=== PATIENT | female | born 1945 | race Caucasian/White ===

== ENCOUNTER 2016-09-20 01:39 | Emergency (ER) | payer OTHER ==
[~2016-09-20] VITALS: Ht 167.6 cm; Wt 78.0 kg
[~2016-09-20 01:39] MED LIST: LEVAQUIN750 MG PO; LISINOPRIL/HCTZ1 TAB PO; LISINOPRIL10 MG PO; METOPROLOL25 MG PO; VICODIN 5/500 505 MG PO; Vicodin 5/500 505 MG PO
[2016-09-20 02:05] LABS: BILIRUBIN NEGATIVE (NEGATIVE); BLOOD 1+ (NEGATIVE); CLARITY SL CLOUDY (CLEAR); COLOR YELLOW (YELLOW); GLUCOSE NEGATIVE (NEGATIVE); KETONE NEGATIVE (NEGATIVE); LEUKO ESTERASE 1+ (NEGATIVE); NITRITE POSITIVE (NEGATIVE); PH 6.5 (5.0-9.0); PROTEIN NEGATIVE (NEGATIVE); UROBILINOGEN 0.2 E.U./dl (0.2-1.0)
[2016-09-20 02:33] LABS: BASO % 0.3 % (0.0-1.0); EOS # 0.1 10*3/uL (0.0-0.4); EOS % 0.9 % (1.0-4.0); HEMATOCRIT 37.6 % (37.0-47.0); HEMOGLOBIN 11.9 g/dl (12.0-16.0); IG # 0.1 10*3/uL (0.0-0.1); LYMPH # 1.1 10*3/uL (1.3-4.4); LYMPH % 7.1 % (27.0-41.0); MEAN CELL VOLUME 90.6 fl (81.0-99.0); MEAN CORPUSCULAR HGB 28.7 pg (27.0-31.0); MEAN CORPUSCULAR HGB CONC 31.6 g/dl (33.0-37.0); MEAN PLATELET VOLUME 10.1 fl (9.6-12.3); MONO # 1.5 10*3/uL (0.1-1.0); MONO % 9.4 % (3.0-9.0); NEUT # 12.8 10*3/uL (2.3-7.9); PLATELET COUNT AUTOMATED 173 10*3/uL (130-400); RED BLOOD COUNT 4.15 10*6/uL (4.10-5.10); RED CELL DISTRI WIDTH 13.6 % (0-14.5); WHITE BLOOD COUNT 15.5 10*3/uL (4.8-10.8)
[2016-09-20 02:42] LABS: BACTERIA 2+; RBC 16-20 rbc/hpf (0-2); URINE REFLEX COMMENT YES (NO); WBC 16-20 wbc/hpf (0-5)
[2016-09-20 02:47] LABS: POTASSIUM 4.2 mmol/L (3.5-5.1)
[2016-09-20] MEDS ORDERED: ZOFRAN ODT4 MG SL (04:56)
[2016-09-20] MEDS ORDERED: NORCO 5-325 TA1 EACH PO (04:56)
[2016-09-20] MEDS ORDERED: CIPRO500 MG PO ×2 (04:56→05:03)
[2016-09-21] MEDS ORDERED: LISINOPRIL5 MG PO (23:14)
[2016-09-21] MEDS ORDERED: LEVOTHYROXIN0.075 MG PO (23:16)
== END 2016-09-20 05:25 | disposition home or self-care (01) ==
LOC: ED 01:39
PROVIDERS: Emergency Medicine Emergency Medical Services
DX: A00-B99 Certain infectious and parasitic diseases (principal); N20.0 Calculus of kidney; Z87.442 Personal history of urinary calculi; Z88.0 Allergy status to penicillin; Z90.49 Acquired absence of other specified parts of digestive tract

== ENCOUNTER 2016-09-21 19:05 | Inpatient (IN) | payer OTHER ==
[~2016-09-21] VITALS: Ht 167.6 cm; Wt 80.4 kg
[~2016-09-21 19:05] MED LIST changes: +CIPRO500 MG PO; +NORCO 5-325 TA1 EACH PO; +ZOFRAN ODT4 MG SL
[2016-09-21 19:24] VITALS: BP 152/64
[2016-09-21 19:57] LABS: MEAN CELL VOLUME 91.4 fl (81.0-99.0); MEAN CORPUSCULAR HGB 28.7 pg (27.0-31.0); MEAN CORPUSCULAR HGB CONC 31.4 g/dl (33.0-37.0); MEAN PLATELET VOLUME 10.2 fl (9.6-12.3); PLATELET COUNT AUTOMATED 157 10*3/uL (130-400); RED BLOOD COUNT 3.83 10*6/uL (4.10-5.10); RED CELL DISTRI WIDTH 13.6 % (0-14.5); WHITE BLOOD COUNT 14.2 10*3/uL (4.8-10.8)
[2016-09-21 20:14] LABS: ALBUMIN 3.1 gm/dl (3.1-4.5); ALKALINE PHOSPHATASE 98 U/L (45-117); BILIRUBIN, TOTAL 1.5 mg/dl (0.2-1.0); BUN 21 mg/dl (7-24); CARBON DIOXIDE 26 mmol/L (21-32); CHLORIDE 102 mmol/L (98-107); EST GLOM FILT AFRICAN AMERICAN > 60 ml/min; GLUCOSE 118 mg/dL (65-99); POTASSIUM 3.8 mmol/L (3.5-5.1); SGOT/AST 22 IU/L (3-35); SGPT/ALT 33 U/L (12-78); SODIUM 136 mmol/L (136-145); TOTAL PROTEIN 7.3 gm/dL (6.4-8.2)
[2016-09-21 20:17] LABS: MONOCYTE # 1.4 10*3/uL (0.1-1.0); NEUTROPHIL # 11.8 10*3/uL (2.3-7.9); NEUTROPHILS 83 % (47-73); PLATELET SUFFICIENCY NORMAL (NORMAL); TOTAL CELLS COUNTED 100 #CELLS; TROPONIN I < 0.015 ng/ml (<0.045)
[2016-09-21 20:49] VITALS: BP 135/52
[2016-09-21 22:00] VITALS: BP 139/58
[2016-09-21] MEDS ORDERED: LISINOPRIL5 MG PO (23:14)
[2016-09-21] MEDS ORDERED: LEVOTHYROXIN0.075 MG PO (23:16)
[2016-09-22] VITALS: BP 146/59
[2016-09-22 06:57] LABS: BASO % 0.1 % (0.0-1.0); EOS % 0.4 % (1.0-4.0); HEMOGLOBIN 9.8 g/dl (12.0-16.0); IG # 0.1 10*3/uL (0.0-0.1); LYMPH # 0.9 10*3/uL (1.3-4.4); LYMPH % 10.1 % (27.0-41.0); MEAN CELL VOLUME 92.3 fl (81.0-99.0); MEAN CORPUSCULAR HGB 29.2 pg (27.0-31.0); MEAN CORPUSCULAR HGB CONC 31.6 g/dl (33.0-37.0); MEAN PLATELET VOLUME 10.2 fl (9.6-12.3); MONO # 0.9 10*3/uL (0.1-1.0); MONO % 9.5 % (3.0-9.0); NEUT # 7.2 10*3/uL (2.3-7.9); NEUT % 79.3 % (47.0-73.0); PLATELET COUNT AUTOMATED 141 10*3/uL (130-400); RED BLOOD COUNT 3.36 10*6/uL (4.10-5.10); RED CELL DISTRI WIDTH 13.5 % (0-14.5)
[2016-09-22 07:31] LABS: ALBUMIN 2.5 gm/dl (3.1-4.5); BUN 18 mg/dl (7-24); CARBON DIOXIDE 24 mmol/L (21-32); CHLORIDE 110 mmol/L (98-107); CHOLESTEROL 158 mg/dL (<200); EST GLOM FILT AFRICAN AMERICAN > 60 ml/min; GLUCOSE 90 mg/dL (65-99); MAGNESIUM 1.9 mg/dL (1.5-2.1); PHOSPHOROUS 2.4 mg/dL (2.5-4.9); SGOT/AST 16 IU/L (3-35); SGPT/ALT 25 U/L (12-78); SODIUM 142 mmol/L (136-145); TOTAL PROTEIN 6.1 gm/dL (6.4-8.2); TRIGLYCERIDES 72 mg/dl (<150); VLDL CHOLESTEROL 14 mg/dL (6-40)
[2016-09-22 07:37] LABS: ALKALINE PHOSPHATASE 80 U/L (45-117); HDL CHOLESTEROL 46 mg/dl (40-60); LDL CHOLESTEROL 98 mg/dL (9-159); THYROID STIM HORMONE (HS) 0.947 uIU/ml (0.358-4.75)
[2016-09-22 07:38] LABS: PROTHROMBIN TIME 10.9 SECONDS (9.0-12.4)
[2016-09-22 07:40] LABS: HEMOGLOBIN A1c 6.5 % (4.8-5.6)
[2016-09-22 08:00] VITALS: BP 110/42
[2016-09-22 08:06] LABS: VITAMIN D, 25-HYDROXY 20.5 ng/mL (30-100)
[2016-09-22 08:07] LABS: FOLIC ACID 12.17 ng/mL (>5.38)
[2016-09-22 12:00] VITALS: BP 112/50
== END 2016-09-22 17:46 | disposition home or self-care (01) | DRG 871 ==
LOC: ED 19:05 → EDHOLD 20:24 → 4E 20:24
PROVIDERS: Internal Medicine; Nurse Practitioner Family
DX: A41.9 Sepsis, unspecified organism (principal); E43 Unspecified severe protein-calorie malnutrition; N10 Acute pyelonephritis; D64.9 Anemia, unspecified; I10 Essential (primary) hypertension; E78.5 Hyperlipidemia, unspecified; E03.9 Hypothyroidism, unspecified; Z90.49 Acquired absence of other specified parts of digestive tract; Z82.49 Family history of ischemic heart disease and other diseases of the circulatory system; Z88.0 Allergy status to penicillin; N20.0 Calculus of kidney; R73.9 Hyperglycemia, unspecified

== ENCOUNTER → 2018-07-22 | Outpatient (CLI) | payer OTHER ==
[~2018-07-22] MED LIST changes: +COZAAR25 M1 PO; +LEVAQUIN750 M1 PO; +LEVOTHYROXIN0.075 MG PO; +LISINOPRIL5 MG PO; +VITAMIN D-32000 UNIT PO; +ZOVIRAX800 MG PO
== END | disposition home or self-care (01) ==
LOC: ORTHO 00:16
DX: S52.591D Other fractures of lower end of right radius, subsequent encounter for closed fracture with routine healing (principal); X58.XXXD Exposure to other specified factors, subsequent encounter

== ENCOUNTER → 2018-09-01 | Outpatient (CLI) | payer OTHER | END | disposition home or self-care (01) | LOC: ORTHO 00:37 | DX: S52.551D Other extraarticular fracture of lower end of right radius, subsequent encounter for closed fracture with routine healing (principal); X58.XXXD Exposure to other specified factors, subsequent encounter ==

== ENCOUNTER 2019-10-30 21:31 | Emergency (ER) | payer OTHER ==
[~2019-10-30] VITALS: Ht 165.1 cm; Wt 81.6 kg
[2019-10-30 22:21] LABS: BASO # 0.1 10*3/uL (0.0-0.1); BASO % 0.9 % (0.0-1.0); EOS # 0.2 10*3/uL (0.0-0.4); EOS % 3.2 % (1.0-4.0); HEMATOCRIT 36.5 % (37.0-47.0); LYMPH # 1.7 10*3/uL (1.3-4.4); LYMPH % 25.8 % (27.0-41.0); MEAN CELL VOLUME 97.3 fl (81.0-99.0); MEAN CORPUSCULAR HGB 30.1 pg (27.0-31.0); MEAN PLATELET VOLUME 10.4 fl (9.6-12.3); MONO # 0.6 10*3/uL (0.1-1.0); MONO % 9.5 % (3.0-9.0); NEUT % 60.3 % (47.0-73.0); PLATELET COUNT AUTOMATED 174 10*3/uL (130-400); RED BLOOD COUNT 3.75 10*6/uL (4.10-5.10); RED CELL DISTRI WIDTH 12.8 % (0-14.5); WHITE BLOOD COUNT 6.6 10*3/uL (4.8-10.8)
[2019-10-30 22:41] LABS: ALBUMIN 3.5 gm/dl (3.1-4.5); ALKALINE PHOSPHATASE 110 U/L (45-117); BUN 21 mg/dl (7-24); CHLORIDE 111 mmol/L (98-107); CREATININE 1.02 mg/dL (0.55-1.02); POTASSIUM 3.6 mmol/L (3.5-5.1); SGOT/AST 29 IU/L (3-35); SGPT/ALT 33 U/L (12-78); SODIUM 141 mmol/L (136-145); TOTAL PROTEIN 7.3 gm/dL (6.4-8.2)
[2019-10-30 23:09] LABS: BILIRUBIN NEGATIVE; BLOOD 1+ (NEGATIVE); CLARITY CLEAR (CLEAR); COLOR YELLOW (YELLOW); GLUCOSE NEGATIVE; KETONE NEGATIVE; LEUKO ESTERASE 2+ (NEGATIVE); NITRITE NEGATIVE (NEGATIVE); UROBILINOGEN 0.2 E.U./dl (0.2-1.0)
[2019-10-30 23:17] LABS: BACTERIA 1+; RBC 21-30 rbc/hpf (0-2); WBC TNTC wbc/hpf (0-5)
[2019-10-31] MEDS ORDERED: MACROBID100 M1 PO (00:23)
== END 2019-10-31 00:30 | disposition home or self-care (01) ==
LOC: ED 21:31
PROVIDERS: Emergency Medicine Emergency Medical Services
DX: I77.6 Arteritis, unspecified (principal); I10 Essential (primary) hypertension; R79.1 Abnormal coagulation profile; E03.9 Hypothyroidism, unspecified; Z88.0 Allergy status to penicillin; Z79.899 Other long term (current) drug therapy

== ENCOUNTER 2020-03-25 12:57 | Emergency (ER) | payer OTHER ==
[~2020-03-25] VITALS: Ht 167.6 cm; Wt 81.6 kg
[~2020-03-25 12:57] MED LIST changes: +MACROBID100 M1 PO
[2020-03-25 14:02] LABS: BASO # 0.1 10*3/uL (0.0-0.1); EOS # 0.2 10*3/uL (0.0-0.4); EOS % 2.6 % (1.0-4.0); HEMATOCRIT 39.1 % (37.0-47.0); LYMPH # 1.7 10*3/uL (1.3-4.4); LYMPH % 23.1 % (27.0-41.0); MEAN CELL VOLUME 94.9 fl (81.0-99.0); MEAN CORPUSCULAR HGB 30.1 pg (27.0-31.0); MEAN CORPUSCULAR HGB CONC 31.7 g/dl (33.0-37.0); MEAN PLATELET VOLUME 10.2 fl (9.6-12.3); MONO # 0.7 10*3/uL (0.1-1.0); MONO % 10.2 % (3.0-9.0); NEUT # 4.6 10*3/uL (2.3-7.9); NEUT % 62.8 % (47.0-73.0); PLATELET COUNT AUTOMATED 188 10*3/uL (130-400); RED BLOOD COUNT 4.12 10*6/uL (4.10-5.10); RED CELL DISTRI WIDTH 13.2 % (0-14.5); WHITE BLOOD COUNT 7.3 10*3/uL (4.8-10.8)
[2020-03-25 14:12] LABS: ACT PARTIAL THROMBO TIME 27.1 SECONDS (20.0-32.1)
[2020-03-25 14:34] LABS: BILIRUBIN Negative (Negative); BLOOD Negative (Negative); CLARITY Clear (Clear); COLOR Yellow (Yellow); GLUCOSE Negative (Negative); KETONE Negative (Negative); LEUKO ESTERASE Negative (Negative); NITRITE Negative (Negative); PH 6.5 (4.5-8.0); UROBILINOGEN 0.2 E.U./dl (0.0-1.0)
[2020-03-25 14:36] LABS: ALBUMIN 3.8 gm/dl (3.1-4.5); ALKALINE PHOSPHATASE 117 U/L (45-117); BUN 20 mg/dl (7-24); CHLORIDE 107 mmol/L (98-107); CREATININE 0.81 mg/dL (0.55-1.02); SGOT/AST 27 IU/L (3-35); SGPT/ALT 29 U/L (12-78); SODIUM 139 mmol/L (136-145); TOTAL PROTEIN 7.6 gm/dL (6.4-8.2)
[2020-03-25 14:49] LABS: MUCOUS 1+
[2020-03-25 14:53] LABS: TROPONIN I < 0.015 ng/ml (<0.045)
[2020-03-25] MEDS ORDERED: LOPRESSOR50 M1 PO (16:12)
== END 2020-03-25 16:17 | disposition home or self-care (01) ==
LOC: ED 12:57
PROVIDERS: Internal Medicine
DX: I47.1 Supraventricular tachycardia (principal); Z88.0 Allergy status to penicillin; Z79.899 Other long term (current) drug therapy

== ENCOUNTER 2020-05-13 14:43 | Emergency (ER) | payer OTHER ==
[~2020-05-13] VITALS: Wt 84.4 kg
[~2020-05-13 14:43] MED LIST changes: +LOPRESSOR50 M1 PO
[2020-05-13 15:10] LABS: BASO # 0.1 10*3/uL (0.0-0.1); BASO % 0.8 % (0.0-1.0); EOS # 0.2 10*3/uL (0.0-0.4); HEMATOCRIT 38.6 % (37.0-47.0); LYMPH # 1.3 10*3/uL (1.3-4.4); LYMPH % 17.6 % (27.0-41.0); MEAN CORPUSCULAR HGB 29.9 pg (27.0-31.0); MEAN CORPUSCULAR HGB CONC 30.8 g/dl (33.0-37.0); MEAN PLATELET VOLUME 10.2 fl (9.6-12.3); MONO # 0.6 10*3/uL (0.1-1.0); MONO % 8.5 % (3.0-9.0); NEUT # 5.1 10*3/uL (2.3-7.9); NEUT % 69.8 % (47.0-73.0); PLATELET COUNT AUTOMATED 198 10*3/uL (130-400); RED BLOOD COUNT 3.98 10*6/uL (4.10-5.10); RED CELL DISTRI WIDTH 13.2 % (0-14.5); WHITE BLOOD COUNT 7.3 10*3/uL (4.8-10.8)
[2020-05-13 15:21] LABS: ACT PARTIAL THROMBO TIME 27.6 SECONDS (20.0-32.1)
[2020-05-13 15:28] LABS: ALBUMIN 3.5 gm/dl (3.1-4.5); ALKALINE PHOSPHATASE 112 U/L (45-117); BUN 18 mg/dl (7-24); CHLORIDE 109 mmol/L (98-107); CREATININE 0.86 mg/dL (0.55-1.02); POTASSIUM 3.6 mmol/L (3.5-5.1); SGOT/AST 26 IU/L (3-35); SGPT/ALT 27 U/L (12-78); SODIUM 141 mmol/L (136-145); TOTAL PROTEIN 7.8 gm/dL (6.4-8.2)
[2020-05-13 15:29] LABS: TROPONIN I 0.015 ng/ml (<0.045)
[2020-05-13 15:37] LABS: THYROID STIM HORMONE (HS) 2.22 uIU/ml (0.358-4.75)
== END 2020-05-13 20:00 | disposition short-term general hospital (02) ==
LOC: ED 14:43
PROVIDERS: Emergency Medicine
DX: I21.4 Non-ST elevation (NSTEMI) myocardial infarction (principal); R00.2 Palpitations; Z88.0 Allergy status to penicillin; Z79.899 Other long term (current) drug therapy; Z79.2 Long term (current) use of antibiotics; E78.5 Hyperlipidemia, unspecified; I10 Essential (primary) hypertension; E03.9 Hypothyroidism, unspecified; Z87.442 Personal history of urinary calculi; Z90.711 Acquired absence of uterus with remaining cervical stump; Z90.49 Acquired absence of other specified parts of digestive tract

== ENCOUNTER 2020-12-11 10:21 | Emergency (ER) | payer OTHER ==
[~2020-12-11] VITALS: Ht 165.1 cm; Wt 81.6 kg
[2020-12-11 10:56] LABS: BASO % 0.3 % (0.0-1.0); EOS % 0.6 % (1.0-4.0); HEMATOCRIT 36.7 % (37.0-47.0); LYMPH # 0.7 10*3/uL (1.3-4.4); LYMPH % 23.5 % (27.0-41.0); MEAN CELL VOLUME 95.6 fl (81.0-99.0); MEAN CORPUSCULAR HGB 30.5 pg (27.0-31.0); MEAN CORPUSCULAR HGB CONC 31.9 g/dl (33.0-37.0); MEAN PLATELET VOLUME 10.3 fl (9.6-12.3); MONO # 0.5 10*3/uL (0.1-1.0); MONO % 14.6 % (3.0-9.0); NEUT # 1.9 10*3/uL (2.3-7.9); NEUT % 60.7 % (47.0-73.0); PLATELET COUNT AUTOMATED 135 10*3/uL (130-400); RED BLOOD COUNT 3.84 10*6/uL (4.10-5.10); RED CELL DISTRI WIDTH 12.5 % (0-14.5); WHITE BLOOD COUNT 3.2 10*3/uL (4.8-10.8)
[2020-12-11 11:12] LABS: CREATININE 1.24 mg/dL (0.55-1.02); POTASSIUM 4.2 mmol/L (3.5-5.1); TOTAL PROTEIN 7.1 gm/dL (6.4-8.2)
[2020-12-11 11:56] LABS: BILIRUBIN Negative (Negative); BLOOD Negative (Negative); CLARITY Cloudy (Clear); COLOR Yellow (Yellow); GLUCOSE Negative (Negative); KETONE Trace (Negative); LEUKO ESTERASE Negative (Negative); NITRITE Negative (Negative)
[2020-12-11 12:07] LABS: BACTERIA 2+; HYALINE CAST 0-2
[2020-12-11 12:09] LABS: RBC 0-2 rbc/hpf (0-2)
== END 2020-12-11 15:21 | disposition home or self-care (01) ==
LOC: ED 10:21
PROVIDERS: Internal Medicine
DX: U07.1 COVID-19 (principal); Z88.0 Allergy status to penicillin; Z88.2 Allergy status to sulfonamides; Z79.899 Other long term (current) drug therapy; Z79.2 Long term (current) use of antibiotics; Z90.49 Acquired absence of other specified parts of digestive tract; Z98.890 Other specified postprocedural states; Z90.711 Acquired absence of uterus with remaining cervical stump

== ENCOUNTER → 2021-09-08 | Outpatient (CLI) | payer OTHER | END | disposition home or self-care (01) | LOC: COVID19 03:22 | PROVIDERS: ATTEND Internal Medicine | DX: Z20.822 Contact with and (suspected) exposure to COVID-19 (principal) ==

== ENCOUNTER 2022-01-18 10:46 | Emergency (ER) | payer OTHER ==
[~2022-01-18] VITALS: Ht 165.1 cm; Wt 86.2 kg
[2022-01-18] MEDS ORDERED: HYDR25T PO (11:39)
[2022-01-18] MEDS ORDERED: COZAAR100 MG PO (11:39)
[2022-01-18 12:01] LABS: BASO # 0.1 10*3/uL (0.0-0.1); BASO % 0.8 % (0.0-1.0); EOS # 0.2 10*3/uL (0.0-0.4); EOS % 2.3 % (1.0-4.0); HEMATOCRIT 37.6 % (37.0-47.0); LYMPH # 1.6 10*3/uL (1.3-4.4); LYMPH % 19.1 % (27.0-41.0); MEAN CELL VOLUME 98.9 fl (81.0-99.0); MEAN CORPUSCULAR HGB 31.6 pg (27.0-31.0); MEAN CORPUSCULAR HGB CONC 31.9 g/dl (33.0-37.0); MEAN PLATELET VOLUME 10.2 fl (9.6-12.3); MONO # 1.1 10*3/uL (0.1-1.0); MONO % 13.3 % (3.0-9.0); NEUT # 5.5 10*3/uL (2.3-7.9); NEUT % 64.3 % (47.0-73.0); PLATELET COUNT AUTOMATED 187 10*3/uL (130-400); WHITE BLOOD COUNT 8.5 10*3/uL (4.8-10.8)
[2022-01-18 12:17] LABS: ALKALINE PHOSPHATASE 99 U/L (45-117); BUN 26 mg/dl (7-24); CHLORIDE 108 mmol/L (98-107); CREATININE 1.07 mg/dL (0.55-1.02); POTASSIUM 4.1 mmol/L (3.5-5.1); SGOT/AST 28 IU/L (3-35); SGPT/ALT 20 U/L (12-78); SODIUM 139 mmol/L (136-145); TOTAL PROTEIN 7.5 gm/dL (6.4-8.2)
[2022-01-18] MEDS ORDERED: ROBITUSSIN COU1 EACH PO (12:41)
== END 2022-01-18 13:17 | disposition home or self-care (01) ==
LOC: ED 10:46
PROVIDERS: Physician Assistant
DX: J06.9 Acute upper respiratory infection, unspecified (principal); Z20.822 Contact with and (suspected) exposure to COVID-19; Z79.899 Other long term (current) drug therapy; Z88.0 Allergy status to penicillin; Z88.1 Allergy status to other antibiotic agents

== ENCOUNTER 2022-04-30 11:06 | Emergency (ER) | payer OTHER ==
[~2022-04-30] VITALS: Ht 167.6 cm; Wt 86.2 kg
[~2022-04-30 11:06] MED LIST changes: +COZAAR100 MG PO; +HYDR25T PO; +ROBITUSSIN COU1 EACH PO
== END 2022-04-30 14:34 | disposition home or self-care (01) ==
LOC: ED 11:06
DX: S90.02XA Contusion of left ankle, initial encounter (principal); I10 Essential (primary) hypertension; Z88.0 Allergy status to penicillin; Z88.2 Allergy status to sulfonamides; Z88.8 Allergy status to other drugs, medicaments and biological substances; Z90.49 Acquired absence of other specified parts of digestive tract; Z98.890 Other specified postprocedural states; Z90.710 Acquired absence of both cervix and uterus; Z87.442 Personal history of urinary calculi; W11.XXXA Fall on and from ladder, initial encounter; Y93.89 Activity, other specified; Y92.89 Other specified places as the place of occurrence of the external cause; Y99.8 Other external cause status

== ENCOUNTER 2022-05-02 11:00 | Emergency (ER) | payer OTHER ==
[~2022-05-02] VITALS: Ht 167.6 cm; Wt 86.2 kg
[2022-05-02 11:50] LABS: BASO # 0.1 10*3/uL (0.0-0.1); BASO % 0.9 % (0.0-1.0); EOS # 0.1 10*3/uL (0.0-0.4); EOS % 2.1 % (1.0-4.0); HEMATOCRIT 37.6 % (37.0-47.0); LYMPH # 1.5 10*3/uL (1.3-4.4); LYMPH % 22.1 % (27.0-41.0); MEAN CELL VOLUME 96.9 fl (81.0-99.0); MEAN CORPUSCULAR HGB 30.7 pg (27.0-31.0); MEAN CORPUSCULAR HGB CONC 31.6 g/dl (33.0-37.0); MEAN PLATELET VOLUME 9.9 fl (9.6-12.3); MONO # 0.8 10*3/uL (0.1-1.0); MONO % 11.3 % (3.0-9.0); NEUT # 4.3 10*3/uL (2.3-7.9); NEUT % 63.3 % (47.0-73.0); PLATELET COUNT AUTOMATED 191 10*3/uL (130-400); RED BLOOD COUNT 3.88 10*6/uL (4.10-5.10); RED CELL DISTRI WIDTH 13.5 % (0-14.5); WHITE BLOOD COUNT 6.7 10*3/uL (4.8-10.8)
[2022-05-02 12:01] LABS: ACT PARTIAL THROMBO TIME 33.4 SECONDS (20.0-32.1); INTERNATIONAL NORM RATIO 1.2 (2.0-3.5)
[2022-05-02 12:04] LABS: ALKALINE PHOSPHATASE 86 U/L (46-116); BUN 20 mg/dl (9-23); CHLORIDE 103 mmol/L (98-107); POTASSIUM 3.2 mmol/L (3.4-5.1); SGPT/ALT 14 U/L (10-49); TOTAL PROTEIN 6.6 gm/dL (6.0-8.0)
== END 2022-05-02 13:22 | disposition home or self-care (01) ==
LOC: ED 11:00
PROVIDERS: Emergency Medicine
DX: S90.02XA Contusion of left ankle, initial encounter (principal); S90.822A Blister (nonthermal), left foot, initial encounter; I10 Essential (primary) hypertension; Z87.442 Personal history of urinary calculi; Z88.0 Allergy status to penicillin; Z88.2 Allergy status to sulfonamides; Z88.8 Allergy status to other drugs, medicaments and biological substances; Z90.49 Acquired absence of other specified parts of digestive tract; Z90.710 Acquired absence of both cervix and uterus; Z98.890 Other specified postprocedural states; X58.XXXA Exposure to other specified factors, initial encounter; Y93.89 Activity, other specified; Y92.89 Other specified places as the place of occurrence of the external cause; Y99.8 Other external cause status

== ENCOUNTER → 2022-05-11 | Outpatient (CLI) | payer OTHER | END | disposition home or self-care (01) | LOC: WOUNDCARE 01:22 | PROVIDERS: ATTEND Nurse Practitioner Family | DX: S91.302A Unspecified open wound, left foot, initial encounter (principal); E03.9 Hypothyroidism, unspecified; I10 Essential (primary) hypertension; I48.91 Unspecified atrial fibrillation; I48.20 Chronic atrial fibrillation, unspecified; Z90.49 Acquired absence of other specified parts of digestive tract; Z90.710 Acquired absence of both cervix and uterus; W19.XXXA Unspecified fall, initial encounter; Y93.89 Activity, other specified; Y92.098 Other place in other non-institutional residence as the place of occurrence of the external cause; Y99.8 Other external cause status ==

== ENCOUNTER → 2022-05-18 | Outpatient (CLI) | payer OTHER | END | disposition home or self-care (01) | LOC: WOUNDCARE 00:59 | PROVIDERS: ATTEND Nurse Practitioner Family | DX: S91.302D Unspecified open wound, left foot, subsequent encounter (principal); I10 Essential (primary) hypertension; I48.20 Chronic atrial fibrillation, unspecified; E03.9 Hypothyroidism, unspecified; Z90.710 Acquired absence of both cervix and uterus; Z90.49 Acquired absence of other specified parts of digestive tract; X58.XXXD Exposure to other specified factors, subsequent encounter ==

== ENCOUNTER 2022-11-06 13:15 | Emergency (ER) | payer OTHER ==
[~2022-11-06] VITALS: Ht 165.1 cm; Wt 86.2 kg
[2022-11-06 14:15] LABS: BASO % 0.6 % (0.0-1.0); EOS # 0.1 10*3/uL (0.0-0.4); EOS % 0.8 % (1.0-4.0); HEMATOCRIT 36.4 % (37.0-47.0); LYMPH # 0.8 10*3/uL (1.3-4.4); LYMPH % 12.1 % (27.0-41.0); MEAN CELL VOLUME 100.3 fl (81.0-99.0); MEAN CORPUSCULAR HGB 31.4 pg (27.0-31.0); MEAN CORPUSCULAR HGB CONC 31.3 g/dl (33.0-37.0); MEAN PLATELET VOLUME 10.4 fl (9.6-12.3); MONO # 0.7 10*3/uL (0.1-1.0); PLATELET COUNT AUTOMATED 152 10*3/uL (130-400); RED BLOOD COUNT 3.63 10*6/uL (4.10-5.10); RED CELL DISTRI WIDTH 14.3 % (0-14.5); WHITE BLOOD COUNT 6.6 10*3/uL (4.8-10.8)
[2022-11-06 14:38] LABS: POTASSIUM 3.7 mmol/L (3.4-5.1); TOTAL PROTEIN 7.3 gm/dL (6.0-8.0)
[2022-11-06] MEDS ORDERED: LASIX40 MG PO ×2 (15:43)
[2022-11-06] MEDS ORDERED: KLOR-CON 1010 ME1 PO ×2 (15:43)
== END 2022-11-06 15:51 | disposition home or self-care (01) ==
LOC: ED 13:15
PROVIDERS: Student in an Organized Health Care Education/Training Program
DX: I50.9 Heart failure, unspecified (principal); R09.89 Other specified symptoms and signs involving the circulatory and respiratory systems; I10 Essential (primary) hypertension; Z87.442 Personal history of urinary calculi; Z88.0 Allergy status to penicillin; Z88.2 Allergy status to sulfonamides; Z90.49 Acquired absence of other specified parts of digestive tract; Z90.710 Acquired absence of both cervix and uterus; Z98.890 Other specified postprocedural states

== ENCOUNTER 2022-11-08 18:49 | Inpatient (IN) | payer OTHER ==
[~2022-11-08] VITALS: Ht 167.6 cm; Wt 75.5 kg
[2022-11-08 18:49] VITALS: BP 128/45
[~2022-11-08 18:49] MED LIST changes: +KLOR-CON 1010 ME1 PO; +LASIX40 MG PO
[2022-11-08] MEDS ORDERED: POTASSIUM CHLO20 ME3 PO (19:23)
[2022-11-08] MEDS ORDERED: GLIMEPIRIDE4 M1 PO (19:23)
[2022-11-08] MEDS ORDERED: ALBUTEROL2.5 MG/0.5 INH (19:24)
[2022-11-08] MEDS ORDERED: PAXIL40 M1 PO (19:25)
[2022-11-08] MEDS ORDERED: LANTUS SOL100 UNIT/1 SC (19:25)
[2022-11-08] MEDS ORDERED: Oscal,Oyster S500 MG PO (19:25)
[2022-11-08] MEDS ORDERED: NORVASC10 MG PO (19:26)
[2022-11-08] MEDS ORDERED: PLAVIX75 M1 PO (19:26)
[2022-11-08] MEDS ORDERED: PULMICORT0.5 MG/21 NEB (19:26)
[2022-11-08] MEDS ORDERED: METOPROLOL SUCC50 M1 PO (19:28)
[2022-11-08] MEDS ORDERED: NEURONTIN300 MG PO (19:28)
[2022-11-08] MEDS ORDERED: ROSUVASTATIN CA40 MG PO (19:29)
[2022-11-08] MEDS ORDERED: FARXIGA10 M1 PO (19:29)
[2022-11-08] MEDS ORDERED: HUMULIN R100 UNIT/1 SC (19:29)
[2022-11-08] MEDS ORDERED: LASIX40 MG PO (19:30)
[2022-11-08 19:44] LABS: BASO % 0.2 % (0.0-1.0); EOS % 0.2 % (1.0-4.0); HEMATOCRIT 34.4 % (37.0-47.0); LYMPH # 0.4 10*3/uL (1.3-4.4); LYMPH % 2.9 % (27.0-41.0); MEAN CELL VOLUME 96.9 fl (81.0-99.0); MEAN CORPUSCULAR HGB 32.1 pg (27.0-31.0); MEAN CORPUSCULAR HGB CONC 33.1 g/dl (33.0-37.0); MEAN PLATELET VOLUME 10.9 fl (9.6-12.3); MONO % 7.8 % (3.0-9.0); NEUT # 10.6 10*3/uL (2.3-7.9); NEUT % 87.9 % (47.0-73.0); PLATELET COUNT AUTOMATED 163 10*3/uL (130-400); RED BLOOD COUNT 3.55 10*6/uL (4.10-5.10); RED CELL DISTRI WIDTH 14.3 % (0-14.5); WHITE BLOOD COUNT 12.1 10*3/uL (4.8-10.8)
[2022-11-08 19:55] LABS: ACT PARTIAL THROMBO TIME 41.9 SECONDS (20.0-32.1); INTERNATIONAL NORM RATIO 1.4 (2.0-3.5)
[2022-11-08 20:02] LABS: POTASSIUM 3.9 mmol/L (3.4-5.1); TOTAL PROTEIN 6.8 gm/dL (6.0-8.0)
[2022-11-08 20:52] VITALS: BP 118/45
[2022-11-08 23:29] VITALS: BP 130/48
[2022-11-09] VITALS (7 sets, daily range): BP systolic 125–151; BP diastolic 40–83
[2022-11-09 01:16] LABS: BILIRUBIN Negative (Negative); BLOOD Negative (Negative); CLARITY Clear (Clear); COLOR Yellow (Yellow); GLUCOSE Negative (Negative); KETONE Negative (Negative); LEUKO ESTERASE Negative (Negative); NITRITE Negative (Negative); UROBILINOGEN 0.2 E.U./dl (0.0-1.0)
[2022-11-09 01:40] LABS: BACTERIA TRACE; EPITHELIAL CELLS 16-20
[2022-11-09 08:18] LABS: HEMATOCRIT 34.3 % (37.0-47.0); MEAN CELL VOLUME 98.6 fl (81.0-99.0); MEAN CORPUSCULAR HGB 31.6 pg (27.0-31.0); MEAN CORPUSCULAR HGB CONC 32.1 g/dl (33.0-37.0); MEAN PLATELET VOLUME 10.9 fl (9.6-12.3); PLATELET COUNT AUTOMATED 189 10*3/uL (130-400); RED BLOOD COUNT 3.48 10*6/uL (4.10-5.10); RED CELL DISTRI WIDTH 14.7 % (0-14.5); WHITE BLOOD COUNT 14.3 10*3/uL (4.8-10.8)
[2022-11-09 08:23] LABS: MANUAL DIFF REFLEX YES
[2022-11-09 08:41] LABS: FREE T4 1.4 ng/dl (0.89-1.76); POTASSIUM 3.5 mmol/L (3.4-5.1); TOTAL PROTEIN 6.9 gm/dL (6.0-8.0)
[2022-11-09 08:44] LABS: VITAMIN D, 25-HYDROXY 18.3 ng/mL (30-100)
[2022-11-09 08:54] LABS: POLYCHROMASIA SLIGHT; TOTAL CELLS COUNTED 100 #CELLS
[2022-11-09 08:55] LABS: BURR CELLS FEW; PLATELET SUFFICIENCY NORMAL (NORMAL); ROULEAUX SLIGHT; TOXIC GRANULATION SLIGHT
[2022-11-10] MEDS ORDERED: Synthroid,Levo75 MCG PO (06:39)
[2022-11-10] MEDS ORDERED: ELIQUIS5 M1 PO (06:43)
[2022-11-10] MEDS ORDERED: AMIODARONE HCL100 M1 PO (06:43)
[2022-11-10 07:47] LABS: HEMATOCRIT 36.8 % (37.0-47.0); MEAN CORPUSCULAR HGB 31.2 pg (27.0-31.0); MEAN CORPUSCULAR HGB CONC 30.7 g/dl (33.0-37.0); MEAN PLATELET VOLUME 11.2 fl (9.6-12.3); PLATELET COUNT AUTOMATED 205 10*3/uL (130-400); RED BLOOD COUNT 3.62 10*6/uL (4.10-5.10); RED CELL DISTRI WIDTH 14.6 % (0-14.5); WHITE BLOOD COUNT 21.8 10*3/uL (4.8-10.8)
[2022-11-10 07:54] LABS: POTASSIUM 4.1 mmol/L (3.4-5.1)
[2022-11-10 08:00] VITALS: BP 121/42
[2022-11-10 08:11] LABS: ABG BASE EXCESS 3.6 mmol/L (-2.0-2.0); ARTERIAL BLOOD GAS PH 7.25 (7.35-7.45); ARTERIAL BLOOD GAS PO2 101.6 (80-90)
[2022-11-10 08:13] LABS: MEAN CELL VOLUME 101.7 fl (81.0-99.0)
[2022-11-10 08:14] LABS: MANUAL DIFF REFLEX YES
[2022-11-10 09:18] LABS: OVALOCYTES FEW; POLYCHROMASIA SLIGHT; ROULEAUX SLIGHT; TOTAL CELLS COUNTED 100 #CELLS
[2022-11-10 09:19] LABS: BURR CELLS FEW; PLATELET SUFFICIENCY NORMAL (NORMAL)
[2022-11-10 12:00] VITALS: BP 132/56
[2022-11-10 16:00] VITALS: BP 119/33
[2022-11-10 20:00] VITALS: BP 117/52
[2022-11-11] VITALS: BP 122/54
[2022-11-11 07:47] LABS: HEMATOCRIT 33.8 % (37.0-47.0); MEAN CORPUSCULAR HGB 31.4 pg (27.0-31.0); MEAN CORPUSCULAR HGB CONC 31.4 g/dl (33.0-37.0); MEAN PLATELET VOLUME 10.3 fl (9.6-12.3); PLATELET COUNT AUTOMATED 203 10*3/uL (130-400); RED BLOOD COUNT 3.38 10*6/uL (4.10-5.10); RED CELL DISTRI WIDTH 14.4 % (0-14.5); WHITE BLOOD COUNT 10.9 10*3/uL (4.8-10.8)
[2022-11-11 07:52] LABS: MANUAL DIFF REFLEX YES
[2022-11-11 08:00] VITALS: BP 125/54
[2022-11-11 08:07] LABS: POTASSIUM 3.7 mmol/L (3.4-5.1)
[2022-11-11 08:21] LABS: BURR CELLS FEW; OVALOCYTES FEW; PLATELET SUFFICIENCY NORMAL (NORMAL); TOTAL CELLS COUNTED 100 #CELLS
[2022-11-11 12:00] VITALS: BP 140/38
[2022-11-11 16:00] VITALS: BP 121/52
[2022-11-11 20:00] VITALS: BP 129/50
[2022-11-12] VITALS: BP 128/51
[2022-11-12 06:48] LABS: HEMATOCRIT 33.7 % (37.0-47.0); MEAN CELL VOLUME 99.4 fl (81.0-99.0); MEAN CORPUSCULAR HGB 31.3 pg (27.0-31.0); MEAN CORPUSCULAR HGB CONC 31.5 g/dl (33.0-37.0); MEAN PLATELET VOLUME 10.5 fl (9.6-12.3); PLATELET COUNT AUTOMATED 250 10*3/uL (130-400); RED BLOOD COUNT 3.39 10*6/uL (4.10-5.10); RED CELL DISTRI WIDTH 14.5 % (0-14.5); WHITE BLOOD COUNT 8.3 10*3/uL (4.8-10.8)
[2022-11-12 06:50] LABS: MANUAL DIFF REFLEX YES
[2022-11-12 07:13] LABS: CHLORIDE 103 mmol/L (98-107); POTASSIUM 3.4 mmol/L (3.4-5.1)
[2022-11-12 07:24] LABS: BUN 35 mg/dl (9-23)
[2022-11-12 07:36] LABS: PLATELET SUFFICIENCY NORMAL (NORMAL); TOTAL CELLS COUNTED 100 #CELLS
[2022-11-12 08:00] VITALS: BP 110/67
[2022-11-12 12:00] VITALS: BP 146/49
[2022-11-12 16:00] VITALS: BP 137/46
[2022-11-12 20:00] VITALS: BP 131/51
[2022-11-12 23:15] LABS: ABG BASE EXCESS 9.9 mmol/L (-2.0-2.0); ARTERIAL BLOOD GAS PH 7.358 (7.35-7.45); ARTERIAL BLOOD GAS PO2 105.6 (80-90)
[2022-11-13] VITALS: BP 111/50
[2022-11-13 08:00] VITALS: BP 125/59
[2022-11-13] MEDS ORDERED: ZITHROMAX500 MG PO (10:43)
[2022-11-13] MEDS ORDERED: LASIX40 MG PO (10:54)
[2022-11-13] MEDS ORDERED: ATORVASTATIN CA40 M1 PO (10:54)
[2022-11-13] MEDS ORDERED: CLOPIDOGREL75 MG PO (10:54)
[2022-11-13] MEDS ORDERED: ALDACTONE25 MG PO (10:54)
[2022-11-13] MEDS ORDERED: AMIODARONE HCL100 M1 PO (10:58)
[2022-11-13 12:00] VITALS: BP 127/50
== END 2022-11-13 13:25 | disposition home health service (06) | DRG 871 ==
LOC: ED 18:49 → EDHOLD 20:51 → 4E 20:51 → EDHOLD 11-09 10:33 → 4E 11-09 19:44
PROVIDERS: Internal Medicine; Student in an Organized Health Care Education/Training Program; ADMIT Internal Medicine; ATTEND Internal Medicine
DX: A41.9 Sepsis, unspecified organism (principal); I50.33 Acute on chronic diastolic (congestive) heart failure; J18.9 Pneumonia, unspecified organism; N17.0 Acute kidney failure with tubular necrosis; R65.20 Severe sepsis without septic shock; Z66 Do not resuscitate; D64.9 Anemia, unspecified; R73.9 Hyperglycemia, unspecified; I08.1 Rheumatic disorders of both mitral and tricuspid valves; K58.9 Irritable bowel syndrome, unspecified; E03.9 Hypothyroidism, unspecified; E78.5 Hyperlipidemia, unspecified; I11.0 Hypertensive heart disease with heart failure; Z79.899 Other long term (current) drug therapy; Z88.0 Allergy status to penicillin; Z88.2 Allergy status to sulfonamides; Z91.09 Other allergy status, other than to drugs and biological substances; Z90.710 Acquired absence of both cervix and uterus; Z90.49 Acquired absence of other specified parts of digestive tract; Z82.49 Family history of ischemic heart disease and other diseases of the circulatory system; I25.2 Old myocardial infarction; Z51.5 Encounter for palliative care

== ENCOUNTER → 2023-04-26 | Outpatient (CLI) | payer MEDICARE ==
[~2023-04-26] MED LIST changes: +ALBUTEROL2.5 MG/0.5 INH; +ALDACTONE25 MG PO; +AMIODARONE HCL100 M1 PO; +ATORVASTATIN CA40 M1 PO; +CLOPIDOGREL75 MG PO; +ELIQUIS5 M1 PO; +FARXIGA10 M1 PO; +GLIMEPIRIDE4 M1 PO; +HUMULIN R100 UNIT/1 SC; +LANTUS SOL100 UNIT/1 SC; +METOPROLOL SUCC50 M1 PO; +NEURONTIN300 MG PO; +NORVASC10 MG PO; +Oscal,Oyster S500 MG PO; +PAXIL40 M1 PO; +PLAVIX75 M1 PO; +POTASSIUM CHLO20 ME3 PO; +PULMICORT0.5 MG/21 NEB; +ROSUVASTATIN CA40 MG PO; +Synthroid,Levo75 MCG PO; +ZITHROMAX500 MG PO
[2023-04-30 01:06] LABS: ALPHA 2-MACAROGLOBULINS 266 mg/dL (110-276); ALT (SGPT) P5P 16 IU/L (0-40); APOLIPOPROEIN A-1 132 mg/dL (116-209); BILIRUBIN, TOTAL 1.5 mg/dL (0.0-1.2); CHOLESTEROL, TOTAL 177 mg/dL (100-199); GGT 39 IU/L (0-60); GLUCOSE, SERUM 89 mg/dL (70-99); HAPTOGLOBIN 61 mg/dL (42-346); TRIGLYCERIDES 89 mg/dL (0-149)
== END | disposition home or self-care (01) ==
LOC: LAB 07:42
PROVIDERS: ATTEND Physician Assistant
DX: R93.2 Abnormal findings on diagnostic imaging of liver and biliary tract (principal); I10 Essential (primary) hypertension; E78.5 Hyperlipidemia, unspecified

== ENCOUNTER → 2023-12-11 | Outpatient (CLI) | payer MEDICARE | END | disposition home or self-care (01) | LOC: LAB 10:47 | PROVIDERS: ATTEND Family Medicine | DX: R68.83 Chills (without fever) (principal) ==